=== PATIENT | female | born 1935 | race Caucasian/White ===

== ENCOUNTER 2022-02-28 05:54 | Inpatient (IN) | payer MEDICARE, BC ==
[~2022-02-28] VITALS: Ht 167.6 cm; Wt 83.1 kg
[~2022-02-28 05:54] MED LIST: ALLERGY RELIEF10 M1 PO; ASPIRIN E.C. 8181 MG PO; BONIVA PO; CALCIUM 1200 W/1 SGL PO; CENTRUM SILVER1 TA1 PO; CYTOTEC200 MCG PO; DITROPAN XL5 MG PO; FISH OIL500 MG PO; IBU-8800 MG PO; IRON50 MG PO; LEVOTHROID SOD0.1 MG PO; MACRODANTIN50 MG/CA1 PO; METOPROLOL25 MG PO; OCUVITE PO; PLAVIX 75MG TAB75 MG PO; PRILOSEC 20MG20 MG PO; PROTONIX 40MG T40 MG PO; SYNTHROID0.112 MG/T PO; TOPROL XL 25MG25 MG PO; VITAMIN B-1000 MCG/T PO; VITAMIN C BUFF500 MG PO; VITAMIN D31000 IU PO; VITAMIN E1000 U/CAP PO
[2022-02-28 06:42] LABS: BASO # 0.1 K/mm3 (0.0-0.2); BASO % 0.2 % (0.0-2.0); EOS % 0.1 % (0.0-4.0); GRAN # 19.9 K/mm3 (1.4-6.5); GRAN % 88.8 % (42.2-75.2); HEMATOCRIT 39.3 % (37.0-47.0); LYMPH # 1.4 K/mm3 (1.2-3.4); LYMPH % 6.1 % (20.0-51.0); MEAN CELL VOLUME 97 fl (80.0-100.0); MEAN CORPUSCULAR HEMOGLOBIN 32 pg (27-31); MEAN CORPUSCULAR HGB CONC 33 g/dl (33.0-37.0); MEAN PLATELET VOLUME 10.6 fl (7.4-10.4); MONO % 4.3 % (1.7-9.3); PLATELET COUNT 167 K/mm3 (130-400); RED BLOOD COUNT 4.07 M/mm3 (4.10-5.30); REDCELL DISTRIBUTION WIDTH-CV 13.2 % (11.5-14.5)
[2022-02-28 06:46] LABS: PROTHROMBIN TIME 11.6 SECONDS (9.7-12.8)
[2022-02-28 07:01] LABS: ALBUMIN 3.4 gm/dL (3.4-4.8); BILIRUBIN,TOTAL 0.4 mg/dL (0.2-1.2); CALCIUM 8.9 mg/dL (8.4-10.2); CREATININE, serum 0.95 mg/dL (0.57-1.11); POTASSIUM 4.5 mmol/L (3.5-4.5); TOTAL PROTEIN 7.1 gm/dL (6.2-8.1)
[2022-02-28 07:15] LABS: COLLECTION METHOD CATHETER
[2022-02-28 07:23] LABS: MUCOUS Present (NOT PRESENT); PH 5 (5-8); SQUAMOUS EPITHELIAL 0-2 /hpf (0-10); URINE APPEARANCE Cloudy (CLEAR/HAZY); URINE BACTERIA Many /hpf (NONE SEEN); URINE BILIRUBIN Negative (NEGATIVE); URINE BLOOD Negative (NEGATIVE); URINE COLOR Amber (YELLOW); URINE GLUCOSE Negative (NEGATIVE); URINE KETONE Negative (NEGATIVE); URINE LEUKOCYTE ESTERASE 3+ (NEGATIVE); URINE NITRATE Positive (NEGATIVE); URINE PROTEIN(semi-quant) Negative (NEGATIVE); URINE UROBILINOGEN Negative (NEGATIVE)
[2022-02-28 08:00] VITALS: BP 113/53; PULSE 67; TEMP 98
[2022-02-28] MEDS ORDERED: PROBIOTIC BLEN1 EACH PO (08:05)
[2022-02-28] MEDS ORDERED: TYLENOL 325MG325 MG PO (08:06)
[2022-02-28] MEDS ORDERED: ATIVAN 0.50.5 MG/TAB PO (08:09)
[2022-02-28] MEDS ORDERED: CENTRUM SILVER1 CTB PO (08:10)
[2022-02-28] MEDS ORDERED: B COMPLEX #11 TA1 PO (08:10)
[2022-02-28] MEDS ORDERED: NEIGH PO (08:13)
[2022-02-28] MEDS ORDERED: ARICEPT10 MG PO (08:14)
[2022-02-28] MEDS ORDERED: GERI-LANTA 355355 ML PO (08:18)
[2022-02-28] MEDS ORDERED: IMODIUM 2MG CAPS2 MG PO (08:19)
[2022-02-28] MEDS ORDERED: ZESTRIL2.5 MG PO (08:19)
[2022-02-28] MEDS ORDERED: MELATONIN3 M1 PO (08:20)
[2022-02-28] MEDS ORDERED: TOPROL XL 50MG50 MG PO (08:21)
[2022-02-28] MEDS ORDERED: OCUVITE1 TA1 PO (08:26)
[2022-02-28] MEDS ORDERED: NAMENDA 10MG TA10 MG PO (08:26)
[2022-02-28] MEDS ORDERED: MIRALAX PA17 GM/Dose PO (08:29)
[2022-02-28] MEDS ORDERED: REFRESH TEARS 330 ML OP (08:30)
[2022-02-28] MEDS ORDERED: SYNTHROID 0.10.15 MG PO (08:31)
[2022-02-28] MEDS ORDERED: ZOLOFT 25MG25 MG PO (08:36)
[2022-02-28] MEDS ORDERED: ZOLOFT 100MG100 MG PO (08:38)
[2022-02-28 11:33] VITALS: BP 122/54; PULSE 74; TEMP 98.4
--- NOTE | 2022-02-28 11:39 | NUR ---
bilingual patient support caseworker met with patient to discuss discharge plan. Patient's daughter Lisa ([phone]) present at bedside. Patient currently lives at [facility]. Per Lisa, the patient is not independent and receives help with all of her ADL's from the longterm staff. Lisa reports that the patient is unable to ambulate and is wheelchair bound. PCP is Bree Galvez. Her medications are managed through the longterm. Patient does have a DPOA-HC listing Lisa as her agent. Copy can be found in the patient's paper chart. Patient may have surgery today but nothing is scheduled at this moment. Discharge plan: [facility]/ SNF
[2022-02-28 16:00] VITALS: BP 151/81; PULSE 81; TEMP 98.5
[2022-02-28 19:57] VITALS: BP 135/99; PULSE 94; TEMP 98.7
[2022-02-28 20:00] VITALS: BP 135/99; PULSE 95; TEMP 98.7
[2022-03-01] VITALS (11 sets, daily range): BP systolic 127–169; BP diastolic 58–93; PULSE 78–121; TEMP 97.7–983
--- NOTE | 2022-03-01 00:45 | NUR ---
Patient has a rogers which has been draining at the minimum of 30ml/hr. Urine is omayra, no sediment is apparent and smells concentrated. SUBHA Vivar was notified and increased IV fluids from 75ml to 125ml.
--- NOTE | 2022-03-01 03:38 | NUR ---
Report received from day shift nurse, IBETH Olivares. Patient is here due to a left hip fx, expected date of repair is unclear. Ortho will be consulted in the morning of 03/01/22. Patient has a rogers catheter in place which is draining slowly, at the minimum of 30ml/hr. Hospitalist was notified of this and increased fluids; patient is also NPO. Full body assessment was completed and vitals are WNL. Patient is not A&Ox3, she is aware of her name and birthday but cannot express where she is at, what year it is and who the current president of the [place] is. No other complaints at this time, call light kiki linares.
[2022-03-01 04:55] LABS: COLLECTION METHOD IN
[2022-03-01 05:12] LABS: MUCOUS Present (NOT PRESENT); PH 5 (5-8); SQUAMOUS EPITHELIAL 0-2 /hpf (0-10); URINE APPEARANCE Turbid (CLEAR/HAZY); URINE BACTERIA Many /hpf (NONE SEEN); URINE BILIRUBIN Negative (NEGATIVE); URINE BLOOD 3+ (NEGATIVE); URINE COLOR Yellow (YELLOW); URINE GLUCOSE Negative (NEGATIVE); URINE KETONE Negative (NEGATIVE); URINE LEUKOCYTE ESTERASE 1+ (NEGATIVE); URINE NITRATE Negative (NEGATIVE); URINE PROTEIN(semi-quant) 1+ (NEGATIVE); URINE RBC >50 /hpf (0-2); URINE UROBILINOGEN Negative (NEGATIVE)
[2022-03-01 06:15] LABS: BASO # 0.1 K/mm3 (0.0-0.2); BASO % 0.3 % (0.0-2.0); EOS % 0.1 % (0.0-4.0); GRAN % 82.1 % (42.2-75.2); LYMPH # 1.4 K/mm3 (1.2-3.4); LYMPH % 9.6 % (20.0-51.0); MEAN CELL VOLUME 96 fl (80.0-100.0); MEAN CORPUSCULAR HGB CONC 33 g/dl (33.0-37.0); MEAN PLATELET VOLUME 10.7 fl (7.4-10.4); MONO # 1.1 K/mm3 (0.1-0.6); MONO % 7.4 % (1.7-9.3); PLATELET COUNT 159 K/mm3 (130-400); RED BLOOD COUNT 3.31 M/mm3 (4.10-5.30); REDCELL DISTRIBUTION WIDTH-CV 13.4 % (11.5-14.5)
[2022-03-01 06:23] LABS: HEMATOCRIT 31.7 % (37.0-47.0); HEMOGLOBIN 10.4 g/dl (12.5-16.0); MEAN CORPUSCULAR HEMOGLOBIN 31 pg (27-31)
[2022-03-01 06:39] LABS: CALCIUM 8.4 mg/dL (8.4-10.2); CREATININE, serum 0.97 mg/dL (0.57-1.11); POTASSIUM 4.2 mmol/L (3.5-4.5)
--- NOTE | 2022-03-01 09:16 | NUR ---
Initial visit; Patient thanked Marinator for visiting and keeping her in Marinator's prayers. Marinator will follow up.
--- NOTE | 2022-03-01 10:52 | NUR ---
PT TO HAVE SURGERY LATER TODAY AROUND NOON. PHONE CONSENT OBTAINED FROM LISA KEY. CONSENT ON CHART. RIVAS CATHETER TO DD. AM MEDS GIVEN ORDERED. IV RUNNING @60 MLS/HR. DAUGHTER AT BEDSIDE AT THIS TIME. PLAN ON RETURN TO [facility] FOR REHAB AFTER SURGERY.
--- NOTE | 2022-03-01 12:13 | NUR ---
PT TO SURGERY PER BED WITH OMAIRA @1112 ONE DAUGHTER AT BEDSIDE TO GO DOWN TO [facility] WITH PT.
--- NOTE | 2022-03-01 14:45 | NUR ---
PT TO ROOM 325 PER BED WITH REPORT FROM SHAHANA CRISTINA PACU @6030. PT IS ALERT BUT STILL REMAIN CONFUSED TO PERSON AND PLACE. VSS, DRESSING TO LEF LEG CDI WITH GAUZE AND TEGADERM OVER 3 INCISIONS. PT'S DAUGHTERS AT BEDSIDELL.
--- NOTE | 2022-03-01 20:29 | NUR ---
PT IN BED, ASSISTED MOVING UP IN BED, PT CRIES OUT IN PAIN. MEDICATED WITH HS MEDS INCLUDING NORCO FOR LEFT HIP PAIN. PT HAS 3 INCISIONS TO LEFT LEG, DRSG'S D/I. HAS IVF TO LEFT AC INFUSING WITHOUT REDNESS OR SWELLING. IS ALERT TO SELF. RIVAS TO BSD WITH YELLOW URINE. BED ALARM ON.
[2022-03-02] VITALS (7 sets, daily range): BP systolic 106–154; BP diastolic 48–77; PULSE 62–98; TEMP 98.2–98.7
--- NOTE | 2022-03-02 06:00 | NUR ---
PT HAS SLEPT WELL. TAKES SCHEDULED AM MEDS WITHOUT PROBLEM.
[2022-03-02 06:32] LABS: BASO % 0.1 % (0.0-2.0); GRAN % 82.7 % (42.2-75.2); LYMPH # 1.3 K/mm3 (1.2-3.4); LYMPH % 8.8 % (20.0-51.0); MEAN CELL VOLUME 98 fl (80.0-100.0); MEAN CORPUSCULAR HGB CONC 33 g/dl (33.0-37.0); MEAN PLATELET VOLUME 10.9 fl (7.4-10.4); MONO # 1.1 K/mm3 (0.1-0.6); MONO % 7.7 % (1.7-9.3); PLATELET COUNT 126 K/mm3 (130-400); RED BLOOD COUNT 2.55 M/mm3 (4.10-5.30); REDCELL DISTRIBUTION WIDTH-CV 13.3 % (11.5-14.5)
[2022-03-02 06:36] LABS: HEMATOCRIT 25.1 % (37.0-47.0); MEAN CORPUSCULAR HEMOGLOBIN 33 pg (27-31)
[2022-03-02 06:39] LABS: HEMOGLOBIN 8.3 g/dl (12.5-16.0)
[2022-03-02 06:50] LABS: CALCIUM 8.2 mg/dL (8.4-10.2); CREATININE, serum 0.84 mg/dL (0.57-1.11); POTASSIUM 4.5 mmol/L (3.5-4.5)
--- NOTE | 2022-03-02 13:22 | NUR ---
Tube Knitter faxed clinical updates to [facility].
--- NOTE | 2022-03-02 13:43 | NUR ---
Patient pulled second IV out. IV fluids and zosyn running. Randa notified. Will continue to monitor.
--- NOTE | 2022-03-02 20:00 | NUR ---
PATIENT IS ALERT BUT CONFUSED AT BASELINE. PATIENT HAS HX OF DEMENTIA AND LIVES IN A NH. VSS. PATIENT IS EXPRESSING PAIN IN LLE. GAVE NORCO WITH OTHER SCHEDULED HS MEDS, CRUSHED WITH APPLESAUCE. GENERAL DIET BUT NEEDS TO BE FEED. LEFT HIP DRESSINGS X3 ARE CD&I WITH GAUZE & TEGADERM. TEDS & SCD'S TO BLE. POSITIVE PEDAL PULSES TO BLE. RIVAS TO DD WITH MOD AMOUNTS OF OLGA URINE WITH SEDIMENT NOTED. PATIENT PULLED IV OUT, NO IV SITE. PATIENT ASSISTED TO TAKE IN ORAL FLUIDS, TOLERATED WELL. HEAD TO TOE ASSESSMENT COMPLETE. NO OTHER NEEDS AT THIS TIME. CALL LIGHT IN REACH. BED ALARM ON. GENERAL MATCHER AT BEDSIDE.
[2022-03-03 03:37] VITALS: BP 125/52; PULSE 83; TEMP 98.3
[2022-03-03 06:17] LABS: BASO % 0.3 % (0.0-2.0); EOS # 0.1 K/mm3 (0.0-0.7); EOS % 0.4 % (0.0-4.0); GRAN # 8.9 K/mm3 (1.4-6.5); GRAN % 76.6 % (42.2-75.2); LYMPH # 1.6 K/mm3 (1.2-3.4); LYMPH % 13.3 % (20.0-51.0); MEAN CELL VOLUME 97 fl (80.0-100.0); MEAN CORPUSCULAR HGB CONC 33 g/dl (33.0-37.0); MEAN PLATELET VOLUME 10.7 fl (7.4-10.4); MONO % 8.5 % (1.7-9.3); PLATELET COUNT 130 K/mm3 (130-400); RED BLOOD COUNT 2.35 M/mm3 (4.10-5.30); REDCELL DISTRIBUTION WIDTH-CV 13.3 % (11.5-14.5)
[2022-03-03 06:24] LABS: HEMATOCRIT 22.9 % (37.0-47.0); HEMOGLOBIN 7.5 g/dl (12.5-16.0); MEAN CORPUSCULAR HEMOGLOBIN 32 pg (27-31)
[2022-03-03 06:38] LABS: CALCIUM 8.1 mg/dL (8.4-10.2); CREATININE, serum 0.77 mg/dL (0.57-1.11); POTASSIUM 3.8 mmol/L (3.5-4.5)
[2022-03-03 07:20] VITALS: BP 111/44; PULSE 81; TEMP 98.5
--- NOTE | 2022-03-03 09:15 | NUR ---
PT. ASSESSMENT COMPLETE. PT. UP IN CHAIR. ALERT BUT NOT ORIENITED. LUNG SOUNDS CLEAR. INCISION SITE IS CLD&I. RIVAS IN PLACE AND DRAINING YELLOW URINE. NO NEEEDS AT THIS TIME. CALL LIGHT AND CHAIR ALARM IN PLACE. IBETH DENNEY.
--- NOTE | 2022-03-03 09:26 | NUR ---
Follow-up visit; Patient thanked Oncology Coordinator for looking in on her again this morning and wishing her well and a good weekend.
--- NOTE | 2022-03-03 10:25 | NUR ---
Molder Floor faxed clinical updates to [facility].
[2022-03-03 11:14] VITALS: BP 108/50; PULSE 78; TEMP 98.2
[2022-03-03] MEDS ORDERED: NORCO 325 MG-51 TAB PO (12:27)
[2022-03-03] MEDS ORDERED: FERROUS GL325 MG/TAB PO (12:29)
[2022-03-03] MEDS ORDERED: LEVAQUIN 750MG750 M1 PO (12:29)
--- NOTE | 2022-03-03 12:49 | NUR ---
SW spoke with [facility]. Update provided that the patient's Hgb still low today. Possible discharge tomorrow. prison staff requests that the patients Andreas script be sent today to [facility] pharmacy in [place] due to them being closed on the weekends. prison staff states that they have the patients other medications on hand and that those would not be an issue. Hospitalist notified of this request.
[2022-03-03 15:07] VITALS: BP 121/48; PULSE 80; TEMP 98.3
--- NOTE | 2022-03-03 18:28 | NUR ---
Pt sat up in the recliner for most of the morning. Intermittent pain to L hip, PRN pain medication relieved this. Appetite improved per the WOOD GRAINER. Helen TIJERINA. Bed alarm in place.
[2022-03-03 20:11] VITALS: BP 128/54; PULSE 85; TEMP 99
--- NOTE | 2022-03-03 21:41 | NUR ---
Patient assessed around 2129. Alert, oriented to self. Denies pain and discomfort, and no outward s/sx of pain or discomfort noted at this time, such as facial grimacing and moaning. LS CTA. HRR. BSAx4. No edema. Dressing to left hip/outer thigh area CDI. Indwelling rogers catheter with yellow urine with sediment present. Patient continues to have excoriation/redness to jj area. Voices no questions, needs, or concerns at this time. In bed with call light within reach. Bed alarm on.
[2022-03-03 23:44] VITALS: BP 135/48; PULSE 94; TEMP 98.7
[2022-03-04] VITALS (11 sets, daily range): BP systolic 95–132; BP diastolic 37–60; PULSE 71–93; TEMP 97.4–99.4
--- NOTE | 2022-03-04 06:00 | NUR ---
Patient did not have any s/sx of pain or discomfort this shift, such as facial grimacing and moaning, until this morning. After lab draw, patient wincing, moaning, and rubbing at left hip. Given PRN [place] for pain per oders. Repositioned in bed during the night. Indwelling rogers catheter remains in place, draining cloudy yellow urine. In bed with call light within reach. Bed alarm on.
[2022-03-04 07:03] LABS: HEMATOCRIT 21.3 % (37.0-47.0)
[2022-03-04 07:05] LABS: HEMOGLOBIN 6.9 g/dl (12.5-16.0)
--- NOTE | 2022-03-04 07:15 | NUR ---
Notified of critical lab for patient hemoglobin. Called hospitalist, was ordered to give one unit of blood.
--- NOTE | 2022-03-04 15:53 | NUR ---
Received report from day shift. Patient alert to self. VSS. Assessment performed. Lungs CTA, bowel sounds present.Cervantes to DD. Changed dressing on left hip. Drainage noted. Received critical lab for hemoglobin. Started new IV site in left hand. Mittens placed on patient. Ordered one unit of blood. Patient tolerated well. Patient seemed to have more energy throughout the day. Patient resting in bed with call light near.
[2022-03-04 16:35] LABS: HEMATOCRIT 26.6 % (37.0-47.0); HEMOGLOBIN 9.1 g/dl (12.5-16.0)
[2022-03-05] VITALS: BP 137/61; PULSE 85; TEMP 99
[2022-03-05 04:05] VITALS: BP 132/62; PULSE 87; TEMP 97.9
--- NOTE | 2022-03-05 05:11 | NUR ---
Full body assessment completed and vital signs are WNL. Patient is no A&O, only knows her birthday and name. Cervantes catheter in place and is draining yellow urine with no signs of sediment. Patient has 2 incision sites on the left hip and left proximal thigh, CD&I. At approximately 1999 this nurse was notified that the patient pulled out her IV after removing the mitts that have been put in place by dayshift. The charge nurse, Katty CRISTINA, was notified and she placed a new IV in the patients left hand. New IV was wrapped with an zenia wrap and the patient received a mitt to her right hand. Patient has had minimal complaints of pain; only complained of L hip pain when being repositioned. No other complaints at this time or throughout the shift, call light within reach.
[2022-03-05 07:10] LABS: HEMOGLOBIN 8.9 g/dl (12.5-16.0)
[2022-03-05 07:54] VITALS: BP 129/55; PULSE 93; TEMP 98.8
--- NOTE | 2022-03-05 11:03 | NUR ---
Received report from advisory application developer. Patient alert but confused. VSS. Patient here for left hip fracture and decrease in Hgb. Patient is in no apparent pain. Assessment performed. Lungs CTA, bowel sounds present. Surgical sites x3 are CDI with dressing applied. QUINCY and SCD's applied. Bed alarm on with mitt on right hand. IV assessed. Patient fed breakfast and resting in bed with call light near.
[2022-03-05 11:52] VITALS: BP 147/71; PULSE 90; TEMP 98.9
--- NOTE | 2022-03-05 15:41 | NUR ---
Patient picked up by personnel from [facility] at 1538. Patient cleaned, dressed, rogers dc'd, IV dc'd. Called to give report to nurse at [facility].
--- NOTE | 2022-03-05 15:57 | NUR ---
Called report to Nadiya from [facility].
--- NOTE | 2022-03-05 16:28 | NUR ---
10:14: Marshall CRISTINA informs this Manager Of Selection And Assessment patient is ready to discharge back to [facility]. This Manager Of Selection And Assessment contacted IBETH Hearn, to notify. Transportation is coordinated for 14:45. Marshall CRISTINA and Cora NeelyTassel Making Machine Operator notified. Clinical updates/discharge documents faxed.
== END 2022-03-05 15:38 | DRG 481 ==
LOC: COL.ER 05:54 → SURG 07:20
PROVIDERS: Internal Medicine; Orthopaedic Surgery; Personal Emergency Response Attendant; Physician Assistant; ADMIT Student in an Organized Health Care Education/Training Program
PROC: 0QS734Z Reposition Left Upper Femur with Internal Fixation Device, Percutaneous Approach (ICD-10-PCS; principal; 2022-03-01 12:00)
DX: S72.142A Displaced intertrochanteric fracture of left femur, initial encounter for closed fracture (principal); N39.0 Urinary tract infection, site not specified; D62 Acute posthemorrhagic anemia; F03.90 Unspecified dementia, unspecified severity, without behavioral disturbance, psychotic disturbance, mood disturbance, and anxiety; F31.9 Bipolar disorder, unspecified; F41.9 Anxiety disorder, unspecified; E78.5 Hyperlipidemia, unspecified; E03.9 Hypothyroidism, unspecified; Z66 Do not resuscitate; I25.10 Atherosclerotic heart disease of native coronary artery without angina pectoris; I10 Essential (primary) hypertension; K21.9 Gastro-esophageal reflux disease without esophagitis; I35.0 Nonrheumatic aortic (valve) stenosis; B96.89 Other specified bacterial agents as the cause of diseases classified elsewhere; Z96.649 Presence of unspecified artificial hip joint; W06.XXXA Fall from bed, initial encounter; Y93.89 Activity, other specified; Y92.003 Bedroom of unspecified non-institutional (private) residence as the place of occurrence of the external cause; Z86.718 Personal history of other venous thrombosis and embolism; Z85.828 Personal history of other malignant neoplasm of skin; Z95.5 Presence of coronary angioplasty implant and graft; I25.2 Old myocardial infarction; Z79.82 Long term (current) use of aspirin
CPT/HCPCS: 99222-AI; 99232-AI; 99239; A4314; A9284; C1713; C1769; J0690; J0696; J1100; J2270; J2370; J2405; J2543; J2704; J2795; J3010; J7030; J7050; J7120; P9016

== ENCOUNTER 2023-12-24 17:26 | Inpatient (IN) | payer MEDICARE, BC ==
[~2023-12-24] VITALS: Ht 152.4 cm; Wt 81.6 kg
[~2023-12-24 17:26] MED LIST changes: +ARICEPT10 MG PO; +ATIVAN 0.50.5 MG/TAB PO; +B COMPLEX #11 TA1 PO; +CENTRUM SILVER1 CTB PO; +FERROUS GL325 MG/TAB PO; +GERI-LANTA 355355 ML PO; +IMODIUM 2MG CAPS2 MG PO; +LEVAQUIN 750MG750 M1 PO; +MELATONIN3 M1 PO; +MIRALAX PA17 GM/Dose PO; +NAMENDA 10MG TA10 MG PO; +NEIGH PO; +NORCO 325 MG-51 TAB PO; +OCUVITE1 TA1 PO; +PROBIOTIC BLEN1 EACH PO; +REFRESH TEARS 330 ML OP; +SYNTHROID 0.10.15 MG PO; +TOPROL XL 50MG50 MG PO; +TYLENOL 325MG325 MG PO; +ZESTRIL2.5 MG PO; +ZOLOFT 100MG100 MG PO; +ZOLOFT 25MG25 MG PO
[2023-12-24] MEDS ORDERED: NS 1,000 ML IV ONE (18:00)
[2023-12-24 18:34] LABS: HEMATOCRIT 37.6 % (37.0-47.0); HEMOGLOBIN 12.7 g/dl (12.5-16.0); MEAN CELL VOLUME 96 fl (80.0-100.0); MEAN CORPUSCULAR HEMOGLOBIN 32 pg (27-31); MEAN CORPUSCULAR HGB CONC 34 g/dl (33.0-37.0); MEAN PLATELET VOLUME 11.1 fl (7.4-10.4); PLATELET COUNT 126 K/mm3 (130-400); RED BLOOD COUNT 3.93 M/mm3 (4.10-5.30); REDCELL DISTRIBUTION WIDTH-CV 13.6 % (11.5-14.5)
[2023-12-24 18:44] LABS: ALBUMIN 2.1 gm/dL (3.4-4.8); BILIRUBIN,TOTAL 0.7 mg/dL (0.2-1.2); CALCIUM 8.7 mg/dL (8.4-10.2); CREATININE, serum 1.5 mg/dL (0.57-1.11); TOTAL PROTEIN 6.4 gm/dL (6.2-8.1)
[2023-12-24 18:45] LABS: POTASSIUM 2.7 mmol/L (3.5-4.5)
[2023-12-24] MEDS ORDERED: LR 1,000 ML IV ONE (18:45)
[2023-12-24] MEDS ORDERED: Potassium Chloride 100 ML IV ONE (18:45)
[2023-12-24 19:01] LABS: COLLECTION METHOD CATHETER
[2023-12-24 19:02] LABS: TROPONIN-I 0.196 ng/mL (0.00-0.033)
[2023-12-24 19:07] LABS: BAND 5 % (0-10); LYMPHOCYTE 6 % (20.0-51.0); NEUTROPHILS 85 % (42.0-75.2); PLATELET ESTIMATE DECREASED (NORMAL)
[2023-12-24 19:35] LABS: URINE APPEARANCE Cloudy (CLEAR/HAZY); URINE COLOR Yellow (YELLOW); URINE GLUCOSE Negative (NEGATIVE); URINE KETONE TRACE (NEGATIVE); URINE PROTEIN(semi-quant) 2+ (NEGATIVE)
[2023-12-24 19:36] LABS: URINE BACTERIA Many /hpf (NONE SEEN); URINE BLOOD 1+ (NEGATIVE); URINE NITRATE Positive (NEGATIVE)
[2023-12-24 19:37] LABS: MUCOUS Present (NOT PRESENT)
[2023-12-24] MEDS ORDERED: cefTRIAXone 1 G in Water For Injection,Sterile 10 ML IV ONE (19:45)
[2023-12-24] MEDS ORDERED: LR 1,000 ML IV SCH (20:30)
[2023-12-24] MEDS ORDERED: *Potassium Replacement Protocol MC SCH (20:45)
[2023-12-24] MEDS ORDERED: Potassium Chloride 100 ML IV SCH (20:45)
[2023-12-24] MEDS ORDERED: Cefepime 1 G in Water For Injection,Sterile 10 ML IV SCH (21:00)
[2023-12-24] MEDS ORDERED: Acetaminophen 325 MG TAB PO PRN (22:15)
[2023-12-24] MEDS ORDERED: ALBUTEROL0.83 MG/ML IH (22:18)
[2023-12-24] MEDS ORDERED: ATIVAN 0.50.5 MG/TAB PO (22:19)
[2023-12-24] MEDS ORDERED: ASPIRIN E.C. 8181 MG PO (22:19)
[2023-12-24] MEDS ORDERED: NORVASC2.5 MG PO (22:19)
[2023-12-24] MEDS ORDERED: DULCOLAX S10 MG/SUPP RC (22:20)
[2023-12-24] MEDS ORDERED: DIABETIC TUSSI PO (22:20)
[2023-12-24] MEDS ORDERED: PEPCID 20MG TAB20 MG PO ×2 (22:21→22:22)
[2023-12-24] MEDS ORDERED: NORCO 325 MG-51 TAB PO (22:22)
[2023-12-24] MEDS ORDERED: PRINIVIL40 MG PO (22:23)
[2023-12-24] MEDS ORDERED: MIRALAX PA17 GM/Dose PO (22:23)
[2023-12-24] MEDS ORDERED: VITAMIN D31000 I1 PO (22:24)
[2023-12-24] MEDS ORDERED: ZOLOFT 50MG50 MG PO (22:24)
[2023-12-24] MEDS ORDERED: Donepezil 5 MG TAB PO SCH (22:24)
[2023-12-24] MEDS ORDERED: Albuterol/Ipratropium 3 MG-0.5 MG/3 ML Neb Soln IH PRN (22:30)
[2023-12-24 23:00] VITALS: BP_SYST 137
[2023-12-24 23:01] VITALS: BP 137/92; PULSE 85; TEMP 98.5
--- NOTE | 2023-12-24 23:30 | NUR ---
Admitted to medical floor from [facility], Dx, had syncopal episode, at [facility], here dx with Urosepsis,, VSS, on Tele, o2 sats 94% on RA, pt is not speaking except for a few mumbled words, will open eyes when name called, left eye opens 1/2 way, does not follow commands, does not appear to be in pain-- falling asleep immediately, IV fluids of LR at 75cc/hr to L/AC IV site. Fall Risk implemented, bed alarm on, close to [facility]. Cervantes to DD with omayra urine.
[2023-12-24 23:37] VITALS: BP_SYST 137
[2023-12-24 23:51] VITALS: BP_SYST 137
[2023-12-25] VITALS (11 sets, daily range): BP systolic 117–155; BP diastolic 68–83; PULSE 90–108; TEMP 98.1–99.2
[2023-12-25] MEDS ORDERED: HOUSE SUPPLEMENT PO (00:02)
--- NOTE | 2023-12-25 00:30 | NUR ---
Holly aware of troponin of 0.116
[2023-12-25] MEDS ORDERED: Albuterol/Ipratropium 3 MG-0.5 MG/3 ML Neb Soln IH SCH (02:00)
--- NOTE | 2023-12-25 06:13 | NUR ---
No changes, has been sleeping most of the shift, Cervantes with 250cc out this shift.
--- NOTE | 2023-12-25 08:00 | NUR ---
Patient is resting in bed, getting fluids per orders. She opens her eyes when calling her, follows commands. Pt has been NPO for possible surgery. Assessment completed, No further needs at this time. Call light within reach, bed alarm on.
[2023-12-25] MEDS ORDERED: 1/2 NS 1,000 ML IV SCH (08:45)
[2023-12-25] MEDS ORDERED: Sertraline 50 MG TAB PO SCH (09:00)
[2023-12-25] MEDS ORDERED: Memantine 10 MG TAB PO SCH (09:00)
[2023-12-25] MEDS ORDERED: Pantoprazole 40 MG in NS 10 ML IV SCH (09:00)
[2023-12-25] MEDS ORDERED: Famotidine 20 MG TAB PO SCH (09:00)
[2023-12-25] MEDS ORDERED: Eye Formula MVI w/Minerals TABLET PO SCH (09:00)
[2023-12-25] MEDS ORDERED: Cholecalciferol (Vit D3) 1000 Units TAB PO SCH (09:00)
[2023-12-25 09:22] LABS: HEMATOCRIT 43.8 % (37.0-47.0); HEMOGLOBIN 14.2 g/dl (12.5-16.0); MEAN CELL VOLUME 97 fl (80.0-100.0); MEAN CORPUSCULAR HEMOGLOBIN 32 pg (27-31); MEAN CORPUSCULAR HGB CONC 32 g/dl (33.0-37.0); MEAN PLATELET VOLUME 11.9 fl (7.4-10.4); PLATELET COUNT 72 K/mm3 (130-400); RED BLOOD COUNT 4.51 M/mm3 (4.10-5.30); REDCELL DISTRIBUTION WIDTH-CV 13.8 % (11.5-14.5)
[2023-12-25 09:23] LABS: CALCIUM 8.6 mg/dL (8.4-10.2); CREATININE, serum 0.85 mg/dL (0.57-1.11); POTASSIUM 3.9 mmol/L (3.5-4.5)
--- NOTE | 2023-12-25 09:46 | NUR ---
Supervisor Joiners contacted patient's daughter, Lisa (ph#[phone]) to discuss discharge planning as patient has a diagnosis of dementia. Patient lives at [facility] and sees Bree Galvez APRN for primary care. Patient has medications administered to her by staff at [facility] and also relies on them for all ADLS. Patient is not currently up walking, per her daughter and relies on staff to transfer her from bed to a chair. Patient has DPOA-HC in EMR designating Lisa. Plan is for patient to return to [facility] when ready for discharge. SW faxed clinical updates to [facility] for review. Discharge Plan: [facility]
[2023-12-25 09:59] LABS: BAND 1 % (0-10); HYPOCHROMIA 1+; LYMPHOCYTE 6 % (20.0-51.0); NEUTROPHILS 90 % (42.0-75.2)
[2023-12-25 10:00] LABS: PLATELET ESTIMATE DECREASED (NORMAL)
--- NOTE | 2023-12-25 21:00 | NUR ---
Pt. laying in bed. Pt. is alert but confused. Pt. will minimally respond to questions. Pt. did voice "yes" when asked for a drink of water. Shift assessment complete. Pt. denies further needs.
[2023-12-26] VITALS (9 sets, daily range): BP systolic 151–178; BP diastolic 80–92; PULSE 103–125; TEMP 97.4–99
[2023-12-26 07:13] LABS: ALBUMIN 1.7 gm/dL (3.4-4.8); BILIRUBIN,TOTAL 1.4 mg/dL (0.2-1.2); CALCIUM 8.1 mg/dL (8.4-10.2); CREATININE, serum 0.87 mg/dL (0.57-1.11); MAGNESIUM 2.1 mg/dL (1.6-2.6); POTASSIUM 3.6 mmol/L (3.5-4.5); TOTAL PROTEIN 5.9 gm/dL (6.2-8.1)
--- NOTE | 2023-12-26 08:00 | NUR ---
Patient is resting in bed, alert and oriented to self. She ate part of her breakffast, with assistance. Getting fluids and antibiotics per orders. Hypertensive and tachycardic. Assessment completed. Pt had a small BM, hygiene provided, linen changes. No further needs at this time. Call light within reach.
[2023-12-26 10:07] LABS: BASO % 0.2 % (0.0-2.0); EOS % 0.1 % (0.0-4.0); GRAN # 17.3 K/mm3 (1.4-6.5); GRAN % 89.3 % (42.2-75.2); HEMATOCRIT 38.3 % (37.0-47.0); HEMOGLOBIN 12.7 g/dl (12.5-16.0); LYMPH # 0.9 K/mm3 (1.2-3.4); LYMPH % 4.8 % (20.0-51.0); MEAN CELL VOLUME 97 fl (80.0-100.0); MEAN CORPUSCULAR HEMOGLOBIN 32 pg (27-31); MEAN CORPUSCULAR HGB CONC 33 g/dl (33.0-37.0); MEAN PLATELET VOLUME 11.9 fl (7.4-10.4); MONO # 0.9 K/mm3 (0.1-0.6); MONO % 4.8 % (1.7-9.3); PLATELET COUNT 116 K/mm3 (130-400); RED BLOOD COUNT 3.95 M/mm3 (4.10-5.30); REDCELL DISTRIBUTION WIDTH-CV 13.7 % (11.5-14.5)
--- NOTE | 2023-12-26 15:54 | NUR ---
Pt on clear diet, she needs total assist to eat. She drank 80% of her food.
--- NOTE | 2023-12-26 16:00 | NUR ---
Review with hospitalist, Dr. Yao, about the need of catheter rogers. states patient was admited with catheter rogers in place, and she has it to manage urinary retention.
--- NOTE | 2023-12-26 16:06 | NUR ---
MARLEN De Luna faxed updates to [facility]. Discharge Plan: [facility]
--- NOTE | 2023-12-26 17:47 | NUR ---
Call placed to hospitalist Mary Zavaleta NP, about patient's high blood pressure. She will review information and provide further instructions.
[2023-12-26] MEDS ORDERED: Potassium Bicarbonate/Citrate 20 MEQ Effervescent TAB PO SCH (20:00)
--- NOTE | 2023-12-26 20:45 | NUR ---
CALL PLACED TO RT TO REQUEST BREATHING TREATMENT. CALL ANSWERED BY CASEY. PATIENT HAS INSP WHEEZING. VS TACHYCARDIC 103 AND O2 93% ON RA, BP 165 SYSTOLIC. AXO X 1- THIS IS HER BASELINE.
--- NOTE | 2023-12-26 21:00 | NUR ---
UPON SHIFT ASSESSMENT, SASCHA STILL REMAINS AXO X1. INCREASED WOB AND INSP WHEEZES NOTED. RIVAS DRAINING YELLOW URINE WITH SEDIMENT. TELE REVEALS NS TACHY OTHER VITAL SIGNS WNL, HOWEVER, BP ELEVATED INTO 160'S SYSTOLIC. CALL LIGHT WITHIN REACH. WILL REASSESS AND MAINTAIN RESPIRATORY VIGILANCE
[2023-12-27] VITALS (13 sets, daily range): BP systolic 137–164; BP diastolic 78–96; PULSE 85–130; TEMP 97.3–99.9
--- NOTE | 2023-12-27 00:53 | NUR ---
CALL PLACED TO HOSPITALISTJOSIANE IS RUNNING TACHY IN THE 130'S. TORB FOR EKG GIVEN.
--- NOTE | 2023-12-27 00:55 | NUR ---
IBETH Butts notified this charge nurse of status change in patient. Report was received from PCT that patients HR was in the 130s-had been 110s. Also did have some issues with wheezing earlier in shift around 2200 with audible wheezing that RT was notified of and able to give a breathing TX for with good results. Assessed at this time by this nurse-VS taken-patient is afebrile but seems warmer to touch. Patient has advanced dementia and unable to communicate C/O at baseline. Instructed IBETH Butts to call in house hospitalist. New orders received and placed by IBETH Butts. Will continue to monitor.
[2023-12-27] MEDS ORDERED: LR 250 ML IV ONE (01:15)
--- NOTE | 2023-12-27 02:40 | NUR ---
CALL PLACED TO HOSPITALIST TO VERIFY LR BOLUS AND VITAL SIGN VERIFICATION. TORB TO PROCEED WITH BOLUS GIVEN.
--- NOTE | 2023-12-27 06:29 | NUR ---
THROUGHOUT THE NIGHT, SASCHA HAD SEVERAL STATUS CHANGES IN WHICH HOSPITALIST WAS ALERTED AND CAME BEDSIDE TO ASSESS PATIENT. ORDERS WERE GIVEN-SEE NOTES. MOST RECENT VS SHOW SASCHA DEVELOPING FEVER 99.9 AUXILLARY TEMP. SHE REMAINS TACHYCARDIC FLUCTUATING BETWEEN 100'S- 120'S. WOB SEEMS TO HAVE IMPROVED. PRN TYLENOL GIVEN. SHE REMAINS AT HER BASELINE AXO X1 AND IS SLEEPING IN BED. Q2 TURN INTERVENTION IN PLACE TO MAINTAIN SKIN INTEGRITY. RIVAS CARE PROVIDED, BEDALRM ON, CALL LIGHT WITHIN REACH
[2023-12-27 07:13] LABS: HEMOGLOBIN 11.1 g/dl (12.5-16.0); MEAN CELL VOLUME 97 fl (80.0-100.0); MEAN CORPUSCULAR HEMOGLOBIN 32 pg (27-31); MEAN CORPUSCULAR HGB CONC 32 g/dl (33.0-37.0); MEAN PLATELET VOLUME 11.4 fl (7.4-10.4); PLATELET COUNT 118 K/mm3 (130-400); RED BLOOD COUNT 3.52 M/mm3 (4.10-5.30); REDCELL DISTRIBUTION WIDTH-CV 13.9 % (11.5-14.5)
[2023-12-27 07:15] LABS: HEMATOCRIT 34.3 % (37.0-47.0)
[2023-12-27 07:38] LABS: ALBUMIN 1.6 gm/dL (3.4-4.8); BILIRUBIN,TOTAL 1.1 mg/dL (0.2-1.2); CALCIUM 8.3 mg/dL (8.4-10.2); CREATININE, serum 0.9 mg/dL (0.57-1.11); POTASSIUM 3.3 mmol/L (3.5-4.5); TOTAL PROTEIN 5.9 gm/dL (6.2-8.1)
[2023-12-27 07:41] LABS: BAND 3 % (0-10); LYMPHOCYTE 10 % (20.0-51.0); NEUTROPHILS 81 % (42.0-75.2); PLATELET ESTIMATE DECREASED (NORMAL)
--- NOTE | 2023-12-27 08:30 | NUR ---
PT LAYING IN BED UPON ENTERING. ASSESSMENT DONE, MEDS GIVEN PER ORDER. MEDS CRUSHED AND GIVEN W APPLESAUCE. PT ORIENTED TO NAME ONLY. PT VERY WEAK AND ANSWERING QUESTIONS SLOWLY WITH EYES CLOSED. PT DENIES PAIN OR SHORTNESS OF BREATH. PT REPORTS BEING TIRED. FLUIDS AND ANTIBIOTICS RUNNING PER ORDER IN LEFT AC. PT ON 2L NASAL CANNULA. SCDS ON AND RIVAS PATENT. ALL LOBES DIMINISHED. UPPER EXTREMITY TREMORS NOTED DURING ASSESSMENT. BED IN LOWEST POSITION, CALL LIGHT IN REACH, BED ALARM ON.
[2023-12-27] MEDS ORDERED: Potassium Bicarbonate/Citrate 20 MEQ Effervescent TAB PO SCH (08:45)
--- NOTE | 2023-12-27 09:51 | NUR ---
PT INCONTINENT OF LIQUID ORANGE/BROWN STOOL. THIS NURSE AT [facility], PCT AT BEDSIDE FOR BED AND GOWN CHANGE, CATHETER CARE, AND BED BATH. PT MORE ALERT AT THIS TIME. PT REPOSITIONED ON RIGHT SIDE AND DENIES NEEDS AT THIS TIME. BED IN LOWEST POSITION, CALL LIGHT IN REACH, BED ALARM ON
[2023-12-27] MEDS ORDERED: cefTRIAXone 1 G in Water For Injection,Sterile 10 ML IV SCH (10:00)
--- NOTE | 2023-12-27 12:53 | NUR ---
PT INCONTINENT OF LIQUID ORANGE/BROWN STOOL. THIS NURSE AND HELEN BOURGEOIS AT BEDSIDE. RIVAS REMOVED, 9MLS OF WATER REMOVED FROM BALLOON AND CATHETER INTACT, PT TOLERATED WELL. MONTSE CARE DONE. AFTER REPOSITIONING PT AND PREPARING TO PLACE PUREWICK, PER DR MIRANDA VERBAL ORDER, PT CURRENTLY HAVING AN INCONTINENT BOWEL MOVEMENT. DR SANTORO CALLED AND NOTIFIED THAT THIS NURSE IS UNSURE ABOUT PLACING PUREWICK WITH CONTINUOUS LIQUID BOWEL MOVEMENTS. PROVIDER STATED THAT IT IS OKAY TO NOT PLACE PUREWICK AT THIS TIME AND OKAY WITH Q2 CHECK AND CHANGE. PT REPOSITIONED TO LEFT SIDE. FAMILY AT BEDSIDE. BED IN LOWEST POSITION, CALL LIGHT IN REACH, BED ALARM O N
--- NOTE | 2023-12-27 13:39 | NUR ---
Camp Boss attended clinical rounds with the team then faxed clinical updates to [facility].
--- NOTE | 2023-12-27 18:39 | NUR ---
PT LAYING IN BED UPON ENTERING AND IS ALERT TO VOICE. PT DENIES NEEDS AND HAS NO OBVIOUS NEEDS AT THIS TIME. BED IN LOWEST POSITION, CALL LIGHT IN REACH, BED ALARM ON
--- NOTE | 2023-12-27 19:22 | NUR ---
REPORT GIVEN TO ALCDIES, RN
--- NOTE | 2023-12-27 21:25 | NUR ---
UPON SHIFT ASSESSMENT, SASCHA REMAINS AXO X1 AND MOSTLY NON VERBAL. LUNG SOUNDS AUSCULTATED UPPER LOBE INSP. WHEEZING. VS WITH THE EXCEPTION OF HR, ARE CURRENTLY WNL-SHE REMAINS TACHYCARDIC AT 111BPM. PUREWICK DRAINING DARK OLGA LIQUID. TURNED PATIENT TO LEFT SIDE. ADMINISTERED NIGHT MEDS CRUSHED IN APPLESAUCE, TOLERATED WELL.
[2023-12-28] VITALS (7 sets, daily range): BP systolic 147–167; BP diastolic 85–94; PULSE 80–122; TEMP 97.9–99.6
--- NOTE | 2023-12-28 | NUR ---
[facility] PROVIDED PUREWICK CHANGED.
--- NOTE | 2023-12-28 02:51 | NUR ---
RT ASSESSED PATIENT FOR INCREASED WOB AND AUDIBLE INSP WHEEZING. REPOSITIONED HEAD AND NECK TO ENCOURAGE BETTER AIR FLOW. VS ANL O2 SAT 95% ON 2L NC. PATIENT BASELINE AXO X1. Q 2 TURN CND CHECK AND CHANGE COMPLETE.
[2023-12-28 07:32] LABS: HEMOGLOBIN 11.8 g/dl (12.5-16.0); MEAN CELL VOLUME 97 fl (80.0-100.0); MEAN CORPUSCULAR HEMOGLOBIN 31 pg (27-31); MEAN CORPUSCULAR HGB CONC 32 g/dl (33.0-37.0); MEAN PLATELET VOLUME 11.4 fl (7.4-10.4); PLATELET COUNT 146 K/mm3 (130-400); RED BLOOD COUNT 3.76 M/mm3 (4.10-5.30)
[2023-12-28 07:33] LABS: HEMATOCRIT 36.5 % (37.0-47.0)
[2023-12-28 07:47] LABS: ALBUMIN 1.6 gm/dL (3.4-4.8); BILIRUBIN,TOTAL 0.9 mg/dL (0.2-1.2); CALCIUM 8.7 mg/dL (8.4-10.2); CREATININE, serum 0.85 mg/dL (0.57-1.11); MAGNESIUM 2.1 mg/dL (1.6-2.6); POTASSIUM 3.3 mmol/L (3.5-4.5); TOTAL PROTEIN 6.1 gm/dL (6.2-8.1)
--- NOTE | 2023-12-28 08:00 | NUR ---
Patient laying in bed sleeping, awakening with touch and louder verbal command. Alert, but somulent and drowsy. VSS 2L NC O2. IV CDI, fluids infusing. Purewick intact. Patient q2 turn. Call light within reach. Bed alarm on
[2023-12-28 08:46] LABS: EOSINOPHIL 1 % (0-4); HYPOCHROMIA 1+; LYMPHOCYTE 5 % (20.0-51.0); NEUTROPHILS 91 % (42.0-75.2); PLATELET ESTIMATE NORMAL (NORMAL)
[2023-12-28] MEDS ORDERED: Famotidine 20 MG TAB PO SCH (09:00)
[2023-12-28] MEDS ORDERED: Potassium Bicarbonate/Citrate 20 MEQ Effervescent TAB PO ONE (09:45)
--- NOTE | 2023-12-28 14:22 | NUR ---
I called Lisa- daughter, DPOA of pt [place] along with MARLEN Rodriguez. Current Code Status is DNR. Pt admitted for Sepsis, Syncope. Case was reviewed with Lisa. Per Dr. Parker pt is not a good candidate for OR. Laura tube could be placed "but due to age/dementia will defer to family" . Lisa stated that if pt needed this for comfort they may chose this in the future. Currently pt has been pain free. Per Dr. Crystal pt is not improving with increasing WBC's. Lisa agreed to [facility]. She plans to let her sister Maxi know of decision. Tasha GEE will make plans for discharge back to [facility] with Comfort [facility].
[2023-12-28] MEDS ORDERED: LORazepam 2 MG/ML 1 ML VIAL IV PRN (14:30)
[2023-12-28] MEDS ORDERED: Albuterol 0.083% Neb Soln 2.5 MG/3 ML UD IH PRN (14:30)
[2023-12-28] MEDS ORDERED: Morphine Oral Concentrate 20 MG/ML UD SL PRN (14:30)
[2023-12-28] MEDS ORDERED: ATIVAN 1MG T1 MG/TAB PO (15:05)
[2023-12-28] MEDS ORDERED: ROXANOL 20MG20 MG/ML SL (15:05)
[2023-12-28] MEDS ORDERED: DULCOLAX S10 MG/SUPP RC (15:05)
[2023-12-28] MEDS ORDERED: TRANSDERM-0.5 MG/21 TD (15:05)
[2023-12-28] MEDS ORDERED: SYSTANE 0.4%-0.1 SOL OU (15:05)
--- NOTE | 2023-12-28 15:52 | NUR ---
Carton Forming Machine Adjuster was notified that Hospitalist ordered a palliative consult to discuss goals of care. MARLEN and Sandra BOWERS contacted patient's daughter/dpoa, Lisa by phone. Lisa verbalized understanding and advised her main concern for patient was her comfort. Lisa also remarked that at this time, patient is bed bound and has not had the best quality of life. Lisa spoke with her sister and they have decided for patient to return to [facility] on comfort care. MARLEN informed Lisa they can use a hospice agency if they choose to do so, but Lisa advised she was okay with [facility] providing the comfort care and managing patient. MARLEN contacted IBETH Talley at [facility] who advised they can accept patient back tomorrow on comfort care. Gerri advised they can also establish hospice at a later time if it's determined to be needed. MARLEN faxed discharge orders to [facility]. Patient will require EMS transport per nursing so MARLEN scheduled [facility] to picking belt operator patient tomorrow at 1000. MARLEN provided this time to Leodan Gonzalez RN, Hospitalist, and Golf Stud Riveter. Discharge Plan: Return to [facility] on comfort care tomorrow via EMS
[2023-12-29] VITALS: BP_SYST 163
[2023-12-29 04:53] VITALS: BP_SYST 163
--- NOTE | 2023-12-29 04:53 | NUR ---
patient lying in bed alert to self, pt minimally verbal voicing "yes" and "no". pt denies chest pain and shortness of breath, reports having pain, tylenol given crushed in applesauce. general bruising noted on extremities. IV in LAC and LW are patent, sites clean dry and intact. pt has no further needs, questions or concerns at this time. fall precautions in place, call light within reach. will continue to monitor.
--- NOTE | 2023-12-29 08:00 | NUR ---
Patient laying in bed, alert, but confused and drowsy. VS PRN 3L NC O2. IV CDI. Comfort care orders in place. Patient wakes up, but falls back to sleep. Reports pain, pain medication given when requested. Purewick in place. Call light within reach
--- NOTE | 2023-12-29 10:15 | NUR ---
Report called to [facility]. Patient transfered by EMS. Discharge paperwork with the patient. PAtient changed into a brief
--- NOTE | 2023-12-29 16:43 | NUR ---
SW informed patient would be dcing on this day to [facility]. Secure transport confirmed and DC order sent with patient to facilities.
== END 2023-12-29 10:16 | disposition hospice, inpatient (51) | DRG 871 ==
LOC: COL.ER 17:26 → MEDICAL 20:57
PROVIDERS: Nurse Practitioner; Nurse Practitioner Family; Physician Assistant; ADMIT Internal Medicine
DX: A41.9 Sepsis, unspecified organism (principal); I21.4 Non-ST elevation (NSTEMI) myocardial infarction; J18.9 Pneumonia, unspecified organism; E87.20 Acidosis, unspecified; E87.0 Hyperosmolality and hypernatremia; N17.9 Acute kidney failure, unspecified; N39.0 Urinary tract infection, site not specified; K80.00 Calculus of gallbladder with acute cholecystitis without obstruction; G93.49 Other encephalopathy; Z66 Do not resuscitate; Z51.5 Encounter for palliative care; G30.9 Alzheimer's disease, unspecified; D64.9 Anemia, unspecified; F31.9 Bipolar disorder, unspecified; I25.10 Atherosclerotic heart disease of native coronary artery without angina pectoris; F41.1 Generalized anxiety disorder; I10 Essential (primary) hypertension; E03.9 Hypothyroidism, unspecified; D69.6 Thrombocytopenia, unspecified; E87.8 Other disorders of electrolyte and fluid balance, not elsewhere classified; E87.6 Hypokalemia; E78.5 Hyperlipidemia, unspecified; K21.9 Gastro-esophageal reflux disease without esophagitis; E86.0 Dehydration; I95.1 Orthostatic hypotension; I08.0 Rheumatic disorders of both mitral and aortic valves; M85.80 Other specified disorders of bone density and structure, unspecified site; N28.1 Cyst of kidney, acquired; I45.81 Long QT syndrome; R65.20 Severe sepsis without septic shock; I49.3 Ventricular premature depolarization; B96.1 Klebsiella pneumoniae [K. pneumoniae] as the cause of diseases classified elsewhere; F02.80 Dementia in other diseases classified elsewhere, unspecified severity, without behavioral disturbance, psychotic disturbance, mood disturbance, and anxiety; Z86.718 Personal history of other venous thrombosis and embolism; Z98.51 Tubal ligation status; I25.2 Old myocardial infarction; Z95.5 Presence of coronary angioplasty implant and graft; Z88.2 Allergy status to sulfonamides; Z88.8 Allergy status to other drugs, medicaments and biological substances; Z91.030 Bee allergy status; Z79.899 Other long term (current) drug therapy; Z79.82 Long term (current) use of aspirin; Z79.890 Hormone replacement therapy; Z85.828 Personal history of other malignant neoplasm of skin
CPT/HCPCS: C9113; J0692; J0696; J1650; J2543; J3480; J7030; J7120